=== PATIENT | female | born 1985 ===

== ENCOUNTER → 2024-07-15 08:34 | Outpatient (REF) | payer BC, SELFPAY | LOC: PAVMRI 08:34 | PROVIDERS: ATTENDING PHYSICIAN Internal Medicine Cardiovascular Disease; FAMILY PHYSICIAN Family Medicine | DX: I49.3 Ventricular premature depolarization (principal) | CPT/HCPCS: 75561; 75565; A9585 ==

== ENCOUNTER 2024-10-29 06:09 | Day surgery (SDC) | payer BC, SELFPAY ==
[2024-10-13 11:50] VITALS: BMI 26.0
[2024-10-13 12:49] LABS: % Basophils 0.8 % (0-2); % Eosinophils 1.6 % (0-6); % Immature Granulocytes 0.3 % (0-0.5); % Lymphocytes 31.3 % (20.5-51.1); % Monocytes 6.4 % (1.7-9.3); % Neutrophils 59.6 % (42.2-75.2); Absolute Basophils 0.1 10^3/uL (0-0.2); Absolute Eosinophils 0.1 10^3/uL (0-0.7); Absolute Lymphocytes 2.8 10^3/uL (1.2-3.4); Absolute Monocytes 0.6 10^3/uL (0.1-0.6); Absolute Neutrophils 5.3 10^3/uL (1.4-6.5); Hematocrit 41.2 % (37.0-47.0); Hemoglobin 14.2 g/dL (12.0-16.0); Mean Corp Hgb Conc. 34.5 g/dL (33.0-37.0); Mean Corpuscular Hgb 30.6 pg (27.0-31.0); Mean Corpuscular Volume 88.8 fL (81.0-99.0); Mean Platelet Volume 12.1 fL (7.4-10.4); Nucleated Red Blood Cells % 0 %; Platelet Count 263 10^3/uL (130-400); Red Blood Cell Count 4.64 10^6/uL (4.20-5.40); Red Cell Dist. Width 12.1 % (11.5-14.5); White Blood Cell Count 8.9 10^3/uL (4.8-10.8)
[2024-10-13 12:52] LABS: HCG, Urine Qualitative Screen Negative
[2024-10-13 13:00] LABS: ALT (SGPT) 28 U/L (0-35); AST (SGOT) 30 U/L (14-36); Albumin 4.7 g/dl (3.5-5.0); Alkaline Phosphatase 68 U/L (38-126); Blood Urea Nitrogen 17 mg/dl (7-17); Calcium 9.3 mg/dl (8.4-10.2); Carbon Dioxide 27 mmol/L (22-30); Chloride 102 mmol/L (98-107); Estimated Creatinine Clearance 79 ml/min; Glucose 114 mg/dl (70-99); Potassium 4.6 mmol/L (3.5-5.1); Sodium 142 mmol/L (135-145); Total Bilirubin 0.5 mg/dl (0.2-1.3); Total Protein 7.6 g/dl (6.3-8.2); eGFR > 60.00
[2024-10-29] VITALS (11 sets, daily range): BP systolic 94–119; BP diastolic 53–81
[2024-10-29 06:45] LABS: HCG, Urine Qualitative Screen Negative
--- NOTE | 2024-10-29 09:25 | ITS.CL.ABL ---
Print Project Manager - Ablation
Ablation
Procedure Report:
ELECTROPHYSIOLOGY ABLATION REPORT
Date of Procedure: October 29, 2024
Referring: Dr. FRANCISCO Morales
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
HISTORY: As above
PROCEDURE:
After informed consent and patient safety timeout the patient was sedated by the anesthesiology service. Conscious sedation was utilized. The patient was having ventricular bigeminy and trigeminy at the beginning of the procedure with a left
bundle right inferior PVC with precordial transition at V3�V4 with a QS in lead I and notched in lead I. After sedation and under ultrasound guidance an 8 [place] and 9 [place] sheaths were placed in the right femoral vein with direct front wall
access. Over these wires an 8 [place] and 9 [place] short sheath were placed in the RFV and no arterial access was performed. Intracardiac ultrasound and 3D mapping were utilized. Intracardiac ultrasound was brought to the right atrium
demonstrating that the Amplatz closure device was intact without evidence of atrial shunt. No effusion and normal ejection fraction at baseline at the end of the procedure and we utilized intracardiac ultrasound for imaging, to monitor for
complications, and to monitor lesion formation.
Given the frequent PVCs we elected to activation mapped the right ventricle and right ventricular outflow tract at the baseline state under anesthesia with points taken in the Para-Hisian region, the right ventricular septal region, and the right
ventricular outflow tract and its free wall and septal aspects. At [facility] site 3 septal earliest activation approximately 20 to 25 ms with a sharp bipolar signal in early with a QS in the unipolar signal slightly earlier in the unipolar signal
approximately 30 ms was found and ablation at 25 W, 42 degrees, up to 30 second lesions was performed with immediate suppression of the clinical PVC. Ablation was performed just superior to this region in the pulmonary artery and just posterior and
anterior to this region for consolidation lesions. Rare PVCs were noted in the waiting phase of up to 30 minutes with 1 PVC approximately every 3 to 4 minutes which was different in its morphology with a QS in V2 and V3 which was different from the
clinical PVC. Suspicion for radiofrequency heating and catheter movement as underlying mechanism of this nonclinical PVC. A total of 8-1/2 minutes of radiofrequency energy were delivered. Intracardiac ultrasound demonstrated mid myocardial
penetration of lesions and edema in the region of interest. Pace mapping in the earliest area was 96% pace map match via the [employer] mapping system. 3D mapping with [employer] system was performed.
Radiofrequency ablation using the 4 mm catheter tactic cath (temperature controlled with max power set to 20-25 W and max temperature set to 42 degrees) was undertaken. At the end of RF energy delivery, the targeted VT could no longer be induced.
This is in marked contrast to the pre-ablation findings. 30-minute waiting period was utilized. Catheters were removed and sheaths were removed with [id number] suture and manual compression.
COMPLICATIONS: None
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
RECOMMENDATIONS:
1. Out of bed in 4 hours and consider same-day discharge
2. Continue aspirin. Outpatient amatory monitoring in 6 weeks. Consider flecainide 50 mg daily for symptomatic PVCs if recurrent.
Copy to: Dr. FRANCISCO Morales
== END 2024-10-29 14:29 | disposition home or self-care (01) ==
LOC: CATH 06:09
PROVIDERS: ATTENDING PHYSICIAN Internal Medicine Cardiovascular Disease; FAMILY PHYSICIAN Family Medicine; OTHER PHYSICIAN Internal Medicine Interventional Cardiology
DX: I49.3 Ventricular premature depolarization (principal); Q21.12 Patent foramen ovale; Z86.73 Personal history of transient ischemic attack (TIA), and cerebral infarction without residual deficits; Z79.82 Long term (current) use of aspirin; R20.0 Anesthesia of skin; R47.1 Dysarthria and anarthria; R53.1 Weakness; R53.83 Other fatigue; G43.909 Migraine, unspecified, not intractable, without status migrainosus; R42 Dizziness and giddiness; R06.02 Shortness of breath; R00.2 Palpitations; Z82.49 Family history of ischemic heart disease and other diseases of the circulatory system; Z82.3 Family history of stroke; Z88.8 Allergy status to other drugs, medicaments and biological substances; Z88.1 Allergy status to other antibiotic agents; Z98.890 Other specified postprocedural states
CPT/HCPCS: C1894; C1892; C2630; C1759; 36415; 80053; 81025; 83735; 85025; 93005; 93654